=== PATIENT | female | born 1975 | race African-American/Black ===

== ENCOUNTER 2018-04-11 15:13 | Emergency (ER) | payer OTHER ==
[~2018-04-11] VITALS: Ht 172.7 cm; Wt 88.0 kg
[2018-04-11 15:30] VITALS: BP 148/95
[2018-04-11 15:44] LABS: BASOPHILS % 0.8 % (0.0-2.0); EOSINOPHILS % 0.9 % (0.0-5.0); HEMATOCRIT. 37.7 % (36.0-48.0); HEMOGLOBIN. 12.8 g/dL (12.0-16.0); LYMPHOCYTES % 26.8 % (20.0-50.0); MEAN CORPUSCULAR HEMOGLOBIN 26.2 pg (28.0-32.0); MEAN CORPUSCULAR VOLUME 77.1 fL (81.0-99.0); MEAN PLATELET VOLUME 6.8 fl (7.4-10.4); MONOCYTES % 8.2 % (2.0-8.0); NEUTROPHILS % 63.3 % (40.0-76.0); PLATELET 460 x1000/uL (130-400); RED BLOOD CELL COUNT 4.88 mill/uL (4.2-5.4); RED CELL DISTRIBUTION WIDTH 17.7 % (11.6-14.6)
[2018-04-11 15:47] LABS: CHLORIDE 107 mEq/L (98-107)
[2018-04-11 15:55] LABS: HCG SCREEN NEGATIVE
[2018-04-11 16:00] LABS: PROTHROMBIN TIME 10.2 sec (9.4-11.6)
[2018-04-11 16:38] LABS: D-DIMER 0.4 mg/L FEU (<0.50); PARTIAL THROMBOPLASTIN TIME 24.9 sec (23.4-31.0)
[2018-04-11] MEDS ORDERED: ASPIRIN 81MG TABLET PO STA (16:58)
[2018-04-11] MEDS ORDERED: NITROGLYCERIN 0.4MG TABLET SL SL PRN (17:00)
== END 2018-04-11 18:00 | disposition left against medical advice (07) ==
LOC: ER 17:30
DX: R07.2 Precordial pain (principal); R05 Cough; R06.02 Shortness of breath; R11.10 Vomiting, unspecified
CPT/HCPCS: 36415; 71045; 80053; 83880; 84484; 84703; 85025; 85379; 85610; 85730; 93005; 99285

== ENCOUNTER 2023-11-26 17:06 | Emergency (ER) | payer OTHER ==
[~2023-11-26] VITALS: Ht 170.2 cm; Wt 90.0 kg
[2023-11-26 17:13] VITALS: BP 121/78; PULSE 84; RESP 18; TEMP 98.8; O2SAT 94
[2023-11-26] MEDS ORDERED: ASPIRIN 81MG TABLET PO ONE (17:30)
[2023-11-26 18:42] LABS: BASOPHILS % 0.4 % (0.0-2.0); DIFFERENTIAL COMMENT 0; EOSINOPHILS % 1.9 % (0.0-5.0); HEMATOCRIT. 36.5 % (36.0-48.0); HEMOGLOBIN. 11.3 g/dL (12.0-16.0); LYMPHOCYTES % 34.5 % (20.0-50.0); MEAN CORPUSCULAR HEMOGLOBIN 24.4 pg (28.0-32.0); MEAN CORPUSCULAR VOLUME 78.6 fL (81.0-99.0); MEAN PLATELET VOLUME 7.2 fl (7.4-10.4); MONOCYTES % 7.1 % (2.0-8.0); NEUTROPHILS % 56.1 % (40.0-76.0); PLATELET 361 x1000/uL (130-400); RED BLOOD CELL COUNT 4.64 mill/uL (4.2-5.4); RED CELL DISTRIBUTION WIDTH 17.9 % (11.6-14.6); WHITE BLOOD COUNT 7.7 x1000/uL (4.5-11.0)
[2023-11-26 18:51] LABS: ALANINE AMINOTRANSFERASE 15 IU/L (10-49); ALBUMIN 4.2 g/dL (3.2-4.8); ASPARTATE AMINOTRANSFERASE 16 IU/L (<34); BILIRUBIN TOTAL 0.3 mg/dL (0.1-1.0); CALCIUM 9.1 mg/dL (8.7-10.4); CARBON DIOXIDE 28 mEq/L (21-32); CHLORIDE 106 mEq/L (98-107); CREATININE 0.9 mg/dL (0.6-1.0); GLUCOSE 90 mg/dL (70-105); POTASSIUM 3.3 mEq/L (3.5-5.1); PROTEIN TOTAL 7.1 g/dL (6.0-8.3); SODIUM 141 mEq/L (136-145); TROPONIN I HIGH SENSITIVITY 10 ng/L (3.0-34); UREA NITROGEN BLOOD 9 mg/dL (9-23)
== END 2023-11-26 20:00 | disposition home or self-care (01) ==
LOC: ER 17:06
DX: R07.89 Other chest pain (principal); D64.9 Anemia, unspecified; K21.9 Gastro-esophageal reflux disease without esophagitis; I10 Essential (primary) hypertension
CPT/HCPCS: 36415; 71045; 80053; 83880; 84484; 85025; 93005; 99285